=== PATIENT | male | born 1970 | race Caucasian/White ===

== ENCOUNTER 2019-01-09 15:26 | Emergency (ER) | payer OTHER ==
[2019-01-09] MEDS ORDERED: ONDANSETRON 4 MG/2 ML VIAL IVP STA (15:53)
[2019-01-09] MEDS ORDERED: THIAMINE INJ 100 MG in SODIUM CHLORIDE 0.9% 50 ML IV STA (15:53)
[2019-01-09] MEDS ORDERED: LORazepam 2 MG/ML VIAL IVP STA (15:53)
[2019-01-09] MEDS ORDERED: SODIUM CHLORIDE 0.9% 1,000 ML IV ONE (15:53)
--- NOTE | 2019-01-09 15:55 | ED Physician Documentation ---
History of Present Illness - Stated complaint Stated Complaint: ETOH - Chief complaint Chief Complaint: General - History obtained from History obtained from: Patient - History of Present Illness Timing: Today (48-year-old gentleman with history of alcohol abuse presents with shakiness and nausea. Last drink was this morning. Has been on a sams for about a week drinking about 1/5 of hard alcohol a day after a trip to his daughter's place in [place] where she told him that she did not love him anymore. He denies depression, suicidal ideation. He denies auditory or visual hallucinations. He does have a moderate headache and nausea and shakiness. In contrast to the nurse's notes to me he declined to talk to the manager social, just wants some medications to feel better.) Review of Systems Constitutional: reports: Sweats. denies: Fever, Chills Respiratory: denies: Dyspnea, Cough GI: reports: Nausea, Vomiting. denies: Abdominal Pain, Constipation, Diarrhea, Hematemesis, Bloody / black stool PD PAST MEDICAL HISTORY - Past Medical History Past Medical History: No Cardiovascular: None Respiratory: Asthma Neuro: None Endocrine/Autoimmune: None GI: None : None HEENT: None Psych: None Musculoskeletal: Other Derm: None Other Past Medical History: neck - Past Surgical History Past Surgical History: Yes Ortho: Spine surgery - Present Medications Home Medications: Ambulatory Orders Medication Instructions Recorded Confirmed Lorazepam [Ativan] 1 mg PO TID PRN #5 tablet 01/09/19 Ondansetron Odt [Zofran] 4 mg TL Q6H PRN #10 tablet 01/09/19 - Allergies Allergies/Adverse Reactions: Allergies Allergy/AdvReac Type Severity Reaction Status Date / Time Penicillins Allergy Hives Verified 01/09/19 15:34 - Social History Does the pt smoke?: No Smoking Status: Never smoker Does the pt drink ETOH?: Yes ETOH Use: Other Does the pt have substance abuse?: No - Immunizations Immunizations are current?: No - POLST Patient has POLST: No PD ED PE NORMAL - Vitals Vital signs reviewed: Yes - General General: Alert and oriented X 3, Other (Bloodshot eyes, smells of alcohol, mild horizontal nystagmus, my shakiness, in the hands but not the tongue.) - Neck Neck: Supple, no meningeal sign, No bony TTP - Cardiac Cardiac: RRR, No murmur - Respiratory Respiratory: No respiratory distress, Clear bilaterally - Abdomen Abdomen: Normal bowel sounds, Non tender - Back Back: No CVA TTP, No spinal TTP - Derm Derm: No rash - Neuro Neuro: Alert and oriented X 3, sizing end bander 2-12 intact Eye Opening: Spontaneous Motor: Obeys Commands Verbal: Oriented GCS Score: 15 Results - Vitals Vitals: Vital Signs - 24 hr 01/09/19 15:31 Temperature 36.0 C L Heart Rate 115 H Respiratory 16 Rate Blood Pressure 162/96 H O2 Saturation 98 Oxygen O2 Source Room air - Labs Labs: Laboratory Tests 01/09/19 01/09/19 01/09/19 15:40 16:03 16:03 WBC 7.9 RBC 5.43 Hgb 16.7 Hct 49.8 MCV 91.7 MCH 30.8 MCHC 33.5 RDW 12.6 Plt Count 296 MPV 10.1 Neut # (Auto) 4.8 Lymph # (Auto) 2.5 Mcintosh # (Auto) 0.4 Eos # (Auto) 0.1 Baso # (Auto) 0.1 Absolute Nucleated RBC 0.00 Nucleated RBC % 0.0 Sodium 140 Potassium 3.4 L Chloride 96 L Carbon Dioxide 27 Anion Gap 17.0 H BUN 8 Creatinine 0.7 Estimated GFR (MDRD) 121 Glucose 113 H Calcium 9.9 Magnesium 2.1 Total Bilirubin 0.8 AST 40 ALT 28 Alkaline Phosphatase 72 Total Protein 8.5 H Albumin 5.1 Globulin 3.4 Albumin/Globulin Ratio 1.5 Lipase 41 Urine Opiates Screen NEGATIVE Ur Oxycodone Screen NEGATIVE Urine Methadone Screen NEGATIVE Ur Propoxyphene Screen NEGATIVE Ur Barbiturates Screen NEGATIVE Ur Tricyclics Screen NEGATIVE Ur Phencyclidine Scrn NEGATIVE Ur Amphetamine Screen NEGATIVE U Methamphetamines Scrn NEGATIVE U Benzodiazepines Scrn NEGATIVE Urine Cocaine Screen NEGATIVE U Cannabinoids Screen NEGATIVE Ethyl Alcohol 266.2 PD MEDICAL DECISION MAKING - ED course ED course: 48-year-old gentleman who has mild alcohol withdrawal with a significant amount of alcohol still on board. After the administration of IV fluids, Ativan and Zofran he is feeling better. I offered again to have him talk with the manager social which he declined. Departure - Departure Disposition: 01 Home, Self Care Clinical Impression: Alcohol withdrawal Qualifiers: Complication of substance-induced condition: uncomplicated Qualified Code(s): F10.230 - Alcohol dependence with withdrawal, uncomplicated Alcohol intoxication Qualifiers: Complication of substance-induced condition: uncomplicated Qualified Code(s): F10.920 - Alcohol use, unspecified with intoxication, uncomplicated Condition: Good Record reviewed to determine appropriate education?: Yes Instructions: ED Withdrawal Alcohol Prescriptions: Lorazepam [Ativan] 1 mg PO TID PRN #5 tablet PRN Reason: Anxiety Ondansetron Odt [Zofran] 4 mg TL Q6H PRN #10 tablet PRN Reason: Nausea / Vomiting Comments: Return anytime if worse. Do not drink alcohol with the medications. Your blood pressure was elevated today on check into the emergency department. This does not mean that you have hypertension, it is a common phenomenon to come to the emergency department and have elevated blood pressure. I recommend that you see your primary care physician within the week to have it rechecked when you are feeling better.
[2019-01-09 16:03] LABS: MUDS CUTOFF CONCENTRATIONS CUTOFF CONC BELOW:
[2019-01-09 16:12] LABS: AMPHETAMINE SCREEN,URINE NEGATIVE (NEGATIVE); BENZODIAZEPINES SCREEN, URINE NEGATIVE (NEGATIVE); COCAINE SCREEN URINE NEGATIVE (NEGATIVE); METHADONE SCREEN, URINE NEGATIVE (NEGATIVE); METHAMPHETAMINES SCREEN, URINE NEGATIVE (NEGATIVE); OPIATE SCREEN, URINE NEGATIVE (NEGATIVE); OXYCODONE SCREEN, URINE NEGATIVE (NEGATIVE); PROPOXYPHENE SCREEN, URINE NEGATIVE (NEGATIVE); TRICYCLIC ANTIDEPRESSANT,URINE NEGATIVE (NEGATIVE)
[2019-01-09 16:20] LABS: BASOPHILS # (AUTO) 0.1 10^3/uL (0.0-0.1); EOSINOPHILS # (AUTO) 0.1 10^3/uL (0.0-0.7); HGB - HEMOGLOBIN 16.7 g/dL (14.0-18.0); LYMPHOCYTES # (AUTO) 2.5 10^3/uL (1.5-3.5); LYMPHOCYTES % (AUTO) 31.5 %; MEAN CORPUSCULAR HEMOGLOBIN 30.8 pg (27.0-31.0); MEAN CORPUSCULAR HGB CONC 33.5 g/dL (32.0-36.0); MEAN CORPUSCULAR VOLUME 91.7 fL (80.0-94.0); MEAN PLATELET VOLUME 10.1 fL (7.4-11.4); MONOCYTES # (AUTO) 0.4 10^3/uL (0.0-1.0); MONOCYTES % (AUTO) 4.7 %; NEUTROPHILS # (AUTO) 4.8 10^3/uL (1.5-6.6); NEUTROPHILS % (AUTO) 61.4 %; PLT - PLATELET COUNT 296 10^3/uL (130-450); RED BLOOD COUNT 5.43 10^6/uL (4.70-6.10); RED CELL DISTRIBUTION WIDTH 12.6 % (12.0-15.0); WHITE BLOOD COUNT 7.9 x10^3/uL (4.8-10.8)
[2019-01-09 16:32] LABS: ALBUMIN 5.1 g/dL (3.2-5.5); ALBUMIN/GLOBULIN RATIO 1.5 (1.0-2.2); BILIRUBIN,TOTAL 0.8 mg/dL (0.2-1.0); CALCIUM 9.9 mg/dL (8.5-10.3); CREATININE 0.7 mg/dL (0.6-1.2); MAGNESIUM 2.1 mg/dL (1.7-2.8); TOTAL PROTEIN 8.5 g/dL (6.7-8.2)
[2019-01-09 17:32] VITALS: BP 146/82
== END 2019-01-09 17:33 | disposition home or self-care (01) ==
LOC: ED 15:26
DX: F10.229 Alcohol dependence with intoxication, unspecified (principal); F10.239 Alcohol dependence with withdrawal, unspecified; R03.0 Elevated blood-pressure reading, without diagnosis of hypertension
CPT/HCPCS: 80053; 80320; 83690; 83735; 85025; 96365; 96375; 99283; J2060; J3411; J7040; 80306; 80307; 80329; 81001; 81003; 84443; 87086

== ENCOUNTER 2019-03-06 15:25 | Outpatient (CLI) | payer OTHER | END 2019-03-06 15:26 | disposition EMS.NT | LOC: EMS 15:25 | PROVIDERS: ATTEND Surgery | DX: Z72.89 Other problems related to lifestyle (principal) ==

== ENCOUNTER 2019-03-06 15:43 | Emergency (ER) | payer OTHER ==
--- NOTE | 2019-03-06 16:25 | ED Physician Documentation ---
PD HPI NVD - Stated complaint Stated Complaint: ETOH - Chief complaint Chief Complaint: MHE - History obtained from History obtained from: Patient - History of Present Illness Timing - onset: How many weeks ago (had drank heavily this past week. Had been sober for 2-3 months before that. Long standing problem with alcoholism. with him. He would like to stop again. Had not had much fluids otherwise. Has done okay with outpt treatment in the past. Having nause and poor appetite the past day or so.) Associated symptoms: Abdominal pain (upper abd pain.). No: Fever Contributing factors: Alcohol use. No: Sick contact, Bad food, Recent antibiotics Worsened by: Eating Similar symptoms before: Diagnosis (gastritis with alcohol use. No prior pancreatitis.) Review of Systems Constitutional: denies: Fever, Chills Nose: denies: Rhinorrhea / runny nose, Congestion Throat: denies: Sore throat Respiratory: denies: Cough GI: reports: Abdominal Pain, Nausea. denies: Vomiting, Diarrhea, Bloody / black stool : denies: Dysuria, Frequency Neurologic: reports: Generalized weakness, Headache. denies: Focal weakness, Numbness, Altered mental status Psychiatric: denies: Depressed, Suicidal Endocrine: denies: Easy bruising / bleeding Immunocompromised: denies: Immunocompromised PD PAST MEDICAL HISTORY - Past Medical History Cardiovascular: None Respiratory: Asthma Neuro: None Endocrine/Autoimmune: None GI: None : None HEENT: None Psych: None Musculoskeletal: Other Derm: None - Past Surgical History Past Surgical History: Yes Ortho: Spine surgery - Present Medications Home Medications: Ambulatory Orders Medication Instructions Recorded Confirmed Lorazepam [Ativan] 1 mg PO TID PRN #5 tablet 01/09/19 Ondansetron Odt [Zofran] 4 mg TL Q6H PRN #10 tablet 01/09/19 Famotidine 20 mg PO DAILY #30 tablet 03/06/19 LORazepam [Ativan] 1 mg PO Q6H PRN #25 tablet 03/06/19 Promethazine [Phenergan] 25 mg PO Q6H PRN #25 tab 03/06/19 - Allergies Allergies/Adverse Reactions: Allergies Allergy/AdvReac Type Severity Reaction Status Date / Time Penicillins Allergy Hives Verified 01/09/19 15:34 - Social History Does the pt smoke?: No Smoking Status: Never smoker Does the pt drink ETOH?: Yes Does the pt have substance abuse?: No - Immunizations Immunizations are current?: No - POLST Patient has POLST: No PD ED PE NORMAL - Vitals Vital signs reviewed: Yes - General General: Alert and oriented X 3, Well developed/nourished, Other (bloodshot eyes and some slurring of speech. ) - HEENT HEENT: Atraumatic. No: Moist mucous membranes - Neck Neck: Supple, no meningeal sign, No adenopathy - Cardiac Cardiac: RRR, No murmur - Respiratory Respiratory: Clear bilaterally - Abdomen Abdomen: Normal bowel sounds, Soft, Non distended, Other (mild epigastric tenderness. Liver feels enlarged to percussion. ) - Derm Derm: Normal color, Warm and dry - Neuro Neuro: Alert and oriented X 3, No motor deficit, Normal speech Results - Vitals Vitals: Oxygen O2 Source Room air - Labs Labs: Laboratory Tests 03/06/19 03/06/19 16:42 16:42 WBC 8.3 RBC 5.97 Hgb 18.7 H Hct 52.6 H MCV 88.1 MCH 31.3 H MCHC 35.6 RDW 11.7 L Plt Count 281 MPV 9.9 Neut # (Auto) 5.3 Lymph # (Auto) 2.5 Jennings # (Auto) 0.4 Eos # (Auto) 0.0 Baso # (Auto) 0.0 Absolute Nucleated RBC 0.00 Nucleated RBC % 0.0 Sodium 142 Potassium 3.9 Chloride 99 L Carbon Dioxide 25 Anion Gap 18.0 H BUN 16 Creatinine 1.0 Estimated GFR (MDRD) 80 L Glucose 140 H Calcium 8.6 Magnesium 2.6 Total Bilirubin 0.9 AST 34 ALT 31 Alkaline Phosphatase 72 Total Protein 8.2 Albumin 4.7 Globulin 3.5 Albumin/Globulin Ratio 1.3 Lipase 34 Ethyl Alcohol 378.5 PD MEDICAL DECISION MAKING - ED course Complexity details: reviewed results, re-evaluated patient (he is feeling okay. SW gave info about programs. No inpatient available at this time apparently. Pt and okay with heading home with Rx. ), considered differential, d/w patient Departure - Departure Disposition: 01 Home, Self Care Clinical Impression: Alcoholism, Desire for detoxification Condition: Stable Record reviewed to determine appropriate education?: Yes Instructions: ED Withdrawal Alcohol Follow-Up: [facility] [Provider Group] Prescriptions: Famotidine 20 mg PO DAILY #30 tablet LORazepam [Ativan] 1 mg PO Q6H PRN #25 tablet PRN Reason: Alcohol Withdrawal Promethazine [Phenergan] 25 mg PO Q6H PRN #25 tab PRN Reason: Nausea / Vomiting Comments: Stay well-hydrated. Do not drink alcohol. Use famotidine daily as acid reducing medicine to help with stomach irritation. Promethazine as needed for nausea and vomiting. A lot of your nausea and shakiness will come from alcohol withdrawal and use the Ativan as you have in the past 1-2 every 6-8 hours as needed initially and taper down the amount and frequency over a week or so. Follow-up with the local alcohol treatment programs with the information provided by social work. Return as needed. Discharge Date/Time: 03/06/19 18:16
[2019-03-06] MEDS ORDERED: SODIUM CHLORIDE 0.9% 1,000 ML IV ONE (16:36)
[2019-03-06] MEDS ORDERED: ONDANSETRON 4 MG/2 ML VIAL IVP STA (16:36)
[2019-03-06] MEDS ORDERED: FAMOTIDINE 20 MG/2 ML VIAL IVP STA (16:37)
[2019-03-06 16:48] LABS: BASOPHILS % (AUTO) 0.5 %; HGB - HEMOGLOBIN 18.7 g/dL (14.0-18.0); LYMPHOCYTES # (AUTO) 2.5 10^3/uL (1.5-3.5); MEAN CORPUSCULAR HEMOGLOBIN 31.3 pg (27.0-31.0); MEAN CORPUSCULAR HGB CONC 35.6 g/dL (32.0-36.0); MEAN CORPUSCULAR VOLUME 88.1 fL (80.0-94.0); MEAN PLATELET VOLUME 9.9 fL (7.4-11.4); MONOCYTES # (AUTO) 0.4 10^3/uL (0.0-1.0); MONOCYTES % (AUTO) 5.2 %; NEUTROPHILS # (AUTO) 5.3 10^3/uL (1.5-6.6); NEUTROPHILS % (AUTO) 63.9 %; PLT - PLATELET COUNT 281 10^3/uL (130-450); RED BLOOD COUNT 5.97 10^6/uL (4.70-6.10); RED CELL DISTRIBUTION WIDTH 11.7 % (12.0-15.0); WHITE BLOOD COUNT 8.3 x10^3/uL (4.8-10.8)
[2019-03-06 17:02] LABS: ALBUMIN 4.7 g/dL (3.2-5.5); ALBUMIN/GLOBULIN RATIO 1.3 (1.0-2.2); BILIRUBIN,TOTAL 0.9 mg/dL (0.2-1.0); CALCIUM 8.6 mg/dL (8.5-10.3); MAGNESIUM 2.6 mg/dL (1.7-2.8); TOTAL PROTEIN 8.2 g/dL (6.7-8.2)
[2019-03-06 18:16] VITALS: BP 143/86
== END 2019-03-06 18:16 | disposition home or self-care (01) ==
LOC: ED 15:43
DX: F10.229 Alcohol dependence with intoxication, unspecified (principal); R10.10 Upper abdominal pain, unspecified; R11.0 Nausea; R53.1 Weakness
CPT/HCPCS: 36415; 80053; 80320; 83690; 83735; 85025; 96361; 96374; 99284

== ENCOUNTER 2019-04-23 06:24 | Outpatient (CLI) | payer OTHER ==
[2019-04-23 07:01] LABS: ALBUMIN 5.3 g/dL (3.2-5.5); ALBUMIN/GLOBULIN RATIO 1.7 (1.0-2.2); BILIRUBIN,TOTAL 1.2 mg/dL (0.2-1.0); CALCIUM 10.2 mg/dL (8.5-10.3); CREATININE 0.9 mg/dL (0.6-1.2); TOTAL PROTEIN 8.4 g/dL (6.7-8.2)
== END 2019-04-23 06:25 | disposition home or self-care (01) ==
LOC: LAB 06:24
PROVIDERS: ATTEND Family Medicine
DX: E29.1 Testicular hypofunction (principal)
CPT/HCPCS: 36415; 80053; 81599; 84402; 84403; 84443

== ENCOUNTER 2019-04-24 14:42 | Outpatient (CLI) | payer OTHER ==
[2019-04-24 15:03] LABS: BASOPHILS # (AUTO) 0.1 10^3/uL (0.0-0.1); BASOPHILS % (AUTO) 0.8 %; EOSINOPHILS # (AUTO) 0.4 10^3/uL (0.0-0.7); EOSINOPHILS % (AUTO) 3.9 %; HGB - HEMOGLOBIN 14.1 g/dL (14.0-18.0); LYMPHOCYTES # (AUTO) 3.3 10^3/uL (1.5-3.5); LYMPHOCYTES % (AUTO) 31.6 %; MEAN CORPUSCULAR HGB CONC 33.6 g/dL (32.0-36.0); MEAN CORPUSCULAR VOLUME 92.3 fL (80.0-94.0); MEAN PLATELET VOLUME 10.9 fL (7.4-11.4); MONOCYTES # (AUTO) 0.9 10^3/uL (0.0-1.0); MONOCYTES % (AUTO) 8.5 %; NEUTROPHILS # (AUTO) 5.8 10^3/uL (1.5-6.6); NEUTROPHILS % (AUTO) 54.9 %; PLT - PLATELET COUNT 279 10^3/uL (130-450); RED BLOOD COUNT 4.55 10^6/uL (4.70-6.10); RED CELL DISTRIBUTION WIDTH 11.9 % (12.0-15.0); WHITE BLOOD COUNT 10.5 x10^3/uL (4.8-10.8)
== END 2019-04-24 14:43 | disposition home or self-care (01) ==
LOC: LAB 14:42
PROVIDERS: ATTEND Family Medicine
DX: E29.1 Testicular hypofunction (principal)
CPT/HCPCS: 85025